=== PATIENT | female | born 1945 | race Caucasian/White ===

== ENCOUNTER 2020-09-23 13:38 | Inpatient (IN) | payer MEDICARE ==
[~2020-09-23] VITALS: Ht 157.5 cm; Wt 57.6 kg
[~2020-09-23 13:38] MED LIST: NORCO 5-325 TA1 EACH PO
[2020-09-23 15:12] LABS: HEMOGLOBIN 11.3 gm/dl (12.3-15.3); RED BLOOD COUNT 4.22 M/UL (4.00-5.10); WHITE BLOOD COUNT 8.5 K/UL (4.5-11.0)
[2020-09-23 15:46] LABS: BUN/CREATININE RATIO 18 (0-10)
[2020-09-23] MEDS ORDERED: NORVASC5 MG PO (16:58)
[2020-09-23] MEDS ORDERED: SEROQUEL25 MG PO (16:58)
[2020-09-23] MEDS ORDERED: ALBUTEROL2.5 MG/3 M INH (16:59)
[2020-09-23] MEDS ORDERED: ARICEPT5 MG PO (17:00)
[2020-09-23] MEDS ORDERED: NAMENDA10 MG PO (17:00)
[2020-09-23] MEDS ORDERED: ZOCOR20 MG PO (17:01)
[2020-09-24 04:59] LABS: HEMOGLOBIN 9.7 gm/dl (12.3-15.3); WHITE BLOOD COUNT 9.3 K/UL (4.5-11.0)
[2020-09-24 05:03] LABS: RED BLOOD COUNT 3.71 M/UL (4.00-5.10)
[2020-09-25 04:34] LABS: HEMOGLOBIN 10.5 gm/dl (12.3-15.3); RED BLOOD COUNT 4.08 M/UL (4.00-5.10)
[2020-09-25 04:52] LABS: WHITE BLOOD COUNT 6.3 K/UL (4.5-11.0)
[2020-09-27 05:48] LABS: HEMOGLOBIN 10.1 gm/dl (12.3-15.3); RED BLOOD COUNT 3.74 M/UL (4.00-5.10)
[2020-09-29 05:37] LABS: HEMOGLOBIN 9.9 gm/dl (12.3-15.3); RED BLOOD COUNT 3.66 M/UL (4.00-5.10); WHITE BLOOD COUNT 11.2 K/UL (4.5-11.0)
[2020-09-29 05:50] LABS: BUN/CREATININE RATIO 31 (0-10)
--- NOTE | 2020-09-30 06:13 | NUR ---
haldol was pulled due to pt repeatedly getting out of bed and the tech unable to keep her safely in bed. the medication was opened and pulled up into the vial and scanned off, since the pt is covid+. After pt was able to use the bathroom she settled down and did not need the medication. Pharmacy was notified and medication witnessed and wasted with Bee Palumbo RN
[2020-09-30 07:28] LABS: HEMOGLOBIN 10.1 gm/dl (12.3-15.3); RED BLOOD COUNT 3.74 M/UL (4.00-5.10); WHITE BLOOD COUNT 12.9 K/UL (4.5-11.0)
[2020-09-30 08:09] LABS: BUN/CREATININE RATIO 28 (0-10)
[2020-10-01 06:56] LABS: HEMOGLOBIN 11.9 gm/dl (12.3-15.3)
[2020-10-01 07:22] LABS: RED BLOOD COUNT 4.42 M/UL (4.00-5.10)
[2020-10-02 08:18] LABS: RED BLOOD COUNT 4.43 M/UL (4.00-5.10)
[2020-10-02 08:24] LABS: WHITE BLOOD COUNT 18.1 K/UL (4.5-11.0)
[2020-10-03 06:35] LABS: HEMOGLOBIN 11.3 gm/dl (12.3-15.3); RED BLOOD COUNT 4.32 M/UL (4.00-5.10); WHITE BLOOD COUNT 15.6 K/UL (4.5-11.0)
[2020-10-04 02:39] LABS: HEMOGLOBIN 15.3 gm/dl (12.3-15.3); RED BLOOD COUNT 5.82 M/UL (4.00-5.10); WHITE BLOOD COUNT 8.2 K/UL (4.5-11.0)
[2020-10-05 02:54] LABS: HEMOGLOBIN 11.4 gm/dl (12.3-15.3); RED BLOOD COUNT 4.18 M/UL (4.00-5.10); WHITE BLOOD COUNT 12.5 K/UL (4.5-11.0)
[2020-10-06 03:27] LABS: HEMOGLOBIN 11.6 gm/dl (12.3-15.3); RED BLOOD COUNT 4.26 M/UL (4.00-5.10); WHITE BLOOD COUNT 11.2 K/UL (4.5-11.0)
[2020-10-07 06:26] LABS: HEMOGLOBIN 11.9 gm/dl (12.3-15.3); RED BLOOD COUNT 4.35 M/UL (4.00-5.10); WHITE BLOOD COUNT 12.5 K/UL (4.5-11.0)
[2020-10-08 05:26] LABS: HEMOGLOBIN 11.5 gm/dl (12.3-15.3); RED BLOOD COUNT 4.28 M/UL (4.00-5.10)
[2020-10-09 06:43] LABS: HEMOGLOBIN 11.6 gm/dl (12.3-15.3); RED BLOOD COUNT 4.23 M/UL (4.00-5.10); WHITE BLOOD COUNT 10.3 K/UL (4.5-11.0)
[2020-10-11 05:36] LABS: HEMOGLOBIN 11.3 gm/dl (12.3-15.3); RED BLOOD COUNT 4.14 M/UL (4.00-5.10); WHITE BLOOD COUNT 8.5 K/UL (4.5-11.0)
[2020-10-15 02:18] LABS: HEMOGLOBIN 11.2 gm/dl (12.3-15.3); RED BLOOD COUNT 4.05 M/UL (4.00-5.10); WHITE BLOOD COUNT 9.7 K/UL (4.5-11.0)
[2020-10-18 06:39] LABS: HEMOGLOBIN 12.8 gm/dl (12.3-15.3); RED BLOOD COUNT 4.65 M/UL (4.00-5.10); WHITE BLOOD COUNT 9.7 K/UL (4.5-11.0)
[2020-10-20 06:42] LABS: HEMOGLOBIN 12.5 gm/dl (12.3-15.3); RED BLOOD COUNT 4.51 M/UL (4.00-5.10); WHITE BLOOD COUNT 7.9 K/UL (4.5-11.0)
[2020-10-20] MEDS ORDERED: TRAZODONE HCL50 MG PO (10:30)
[2020-10-20] MEDS ORDERED: THERAGRAN M TAB1 EA PO (10:30)
[2020-10-20] MEDS ORDERED: AMLODIPINE BESYL5 MG PO (10:30)
--- NOTE | 2020-10-20 18:32 | NUR ---
CALLED SON CHRISTIE ZULETA AND INFORMED HIM THAT THE AMBULANCE WAS HERE TO ELEMENTARY TEACHER HER TO [facility]. HE STATED THAT HE WENT THERE TODAY AND SIGNED ALL THE PAPERWROK
== END 2020-10-20 18:35 | DRG 177 ==
LOC: ER1 13:38 → MED SURG 4 16:30 → ZEROF 16:30 → MED SURG 4 19:00
PROVIDERS: Emergency Medicine; Family Medicine; Internal Medicine; Internal Medicine Infectious Disease; ADMIT Internal Medicine
PROC: 8E0ZXY6 Isolation (ICD-10-PCS; principal; 2020-09-23)
PROC: XW033E5 Introduction of Remdesivir Anti-infective into Peripheral Vein, Percutaneous Approach, New Technology Group 5 (ICD-10-PCS; 2020-09-24)
DX: U07.1 COVID-19 (principal); G93.41 Metabolic encephalopathy; J18.9 Pneumonia, unspecified organism; J12.82 Pneumonia due to coronavirus disease 2019; J15.9 Unspecified bacterial pneumonia; J96.01 Acute respiratory failure with hypoxia; A41.51 Sepsis due to Escherichia coli [E. coli]; R65.20 Severe sepsis without septic shock; N30.00 Acute cystitis without hematuria; N17.9 Acute kidney failure, unspecified; E87.6 Hypokalemia; Z91.81 History of falling; I10 Essential (primary) hypertension; S42.002A Fracture of unspecified part of left clavicle, initial encounter for closed fracture; S42.122A Displaced fracture of acromial process, left shoulder, initial encounter for closed fracture; R53.81 Other malaise; F29 Unspecified psychosis not due to a substance or known physiological condition; G30.9 Alzheimer's disease, unspecified; F02.80 Dementia in other diseases classified elsewhere, unspecified severity, without behavioral disturbance, psychotic disturbance, mood disturbance, and anxiety
CPT/HCPCS: 36415; 70450; 71045; 73000; 73030; 80048; 80053; 81001; 82550; 82553; 82607; 82962; 83735; 83874; 84443; 84484; 85025; 85610; 85730; 86140; 87077; 87086; 87186; 93005; 94640; 94664; 94760; 96365; 96367; 96372; 96375; 97110; 97110-GP-CQ; 97162; 97167; 97530; 97530-GP-CQ; 99285; J0456; J0696; J1100; J1630; J1650; J2060; J2250; J3480; J3486; J7030; U0002